=== PATIENT | male | born 1980 | race Caucasian/White ===

== ENCOUNTER → 2018-08-10 16:56 | Outpatient (CLI) | payer OTHER, SELFPAY ==
[2018-08-10 17:33] LABS: Semen Sperm Prescence Post-Vas Present (ABSENT)
== END ==
PROVIDERS: PCP Specialist
DX: Z30.2 Encounter for sterilization (principal)
CPT/HCPCS: 89321

== ENCOUNTER → 2018-11-13 15:54 | Outpatient (CLI) | payer OTHER, SELFPAY ==
[2018-11-13 16:46] LABS: Semen Sperm Prescence Post-Vas Absent (ABSENT)
== END ==
PROVIDERS: PCP Specialist
DX: Z30.2 Encounter for sterilization (principal)
CPT/HCPCS: 89321